=== PATIENT | male | born 1945 | race Caucasian/White ===

== ENCOUNTER 2016-01-22 14:40 | Outpatient (RCR) | payer MEDICARE, OTHER ==
[~2016-01-22 14:40] MED LIST: BENAZEPRIL40 MG PO; DOXYCYCLINE 10100 MG PO; GLUCOSAMINE & C1 TA2 PO; HCTZ 25MG25 MG PO; JANUMET 1000 MG1 TA1 PO; LIDODERM5% TP; NORVASC 10MG10 MG PO; TYLENOL 650MG650 M2 PO; ULTRAM50 MG PO; ZOCOR5 MG PO
== END 2016-04-21 | disposition home or self-care (01) ==
LOC: CARDREHAB 14:40
DX: Z48.812 Encounter for surgical aftercare following surgery on the circulatory system (principal)

== ENCOUNTER 2016-04-23 11:11 | Outpatient (RCR) | payer MEDICARE, OTHER ==
[2016-05-04] MEDS ORDERED: ASPIRIN 81M81 MG/TA2 PO (23:12)
[2016-05-04] MEDS ORDERED: ARTIFICIAL TEAR15 M9 OU (23:12)
[2016-05-04] MEDS ORDERED: WELLBUTRIN 75MG75 MG PO (23:13)
[2016-05-04] MEDS ORDERED: SINEMET 25-1001 EACH PO (23:13)
[2016-05-04] MEDS ORDERED: CITALOPRAM40 MG PO (23:14)
[2016-05-04] MEDS ORDERED: ZYRTEC ALLERGY10 MG PO (23:14)
[2016-05-04] MEDS ORDERED: BENADRYL PO (23:15)
[2016-05-04] MEDS ORDERED: CLOPIDOGREL PO (23:15)
[2016-05-04] MEDS ORDERED: FLONASE ALLERG9.9 ML (23:16)
[2016-05-04] MEDS ORDERED: DHA PO (23:16)
[2016-05-04] MEDS ORDERED: LASIX40 M1 PO (23:17)
[2016-05-04] MEDS ORDERED: NORCO 325 MG-51 TA1 PO (23:18)
[2016-05-04] MEDS ORDERED: ISOSORBIDE MONO60 M1 PO (23:18)
[2016-05-04] MEDS ORDERED: CLARITIN LIQUI-10 MG PO (23:19)
[2016-05-04] MEDS ORDERED: COZAAR100 MG PO (23:19)
[2016-05-04] MEDS ORDERED: GLUCOPHAGE850 MG PO (23:25)
[2016-05-04] MEDS ORDERED: PROSTATE HEALT1 EACH PO (23:25)
[2016-05-04] MEDS ORDERED: XARELTO20 MG PO (23:26)
[2016-05-04] MEDS ORDERED: OCUVITE TABLET1 TAB PO (23:26)
[2016-05-04] MEDS ORDERED: BYSTOLIC10 MG PO (23:26)
[2016-05-05 10:06] VITALS: BP 119/65
== END 2016-07-22 | disposition home or self-care (01) ==
LOC: CARDREHAB
DX: Z48.812 Encounter for surgical aftercare following surgery on the circulatory system (principal); Z98.61 Coronary angioplasty status

== ENCOUNTER 2016-05-04 22:54 | Emergency (ER) | payer MEDICARE, OTHER ==
[2016-05-04] MEDS ORDERED: ARTIFICIAL TEAR15 M9 OU (23:12)
[2016-05-04] MEDS ORDERED: ASPIRIN 81M81 MG/TA2 PO (23:12)
[2016-05-04] MEDS ORDERED: WELLBUTRIN 75MG75 MG PO (23:13)
[2016-05-04] MEDS ORDERED: SINEMET 25-1001 EACH PO (23:13)
[2016-05-04] MEDS ORDERED: ZYRTEC ALLERGY10 MG PO (23:14)
[2016-05-04] MEDS ORDERED: CITALOPRAM40 MG PO (23:14)
[2016-05-04] MEDS ORDERED: CLOPIDOGREL PO (23:15)
[2016-05-04] MEDS ORDERED: BENADRYL PO (23:15)
[2016-05-04] MEDS ORDERED: DHA PO (23:16)
[2016-05-04] MEDS ORDERED: FLONASE ALLERG9.9 ML (23:16)
[2016-05-04] MEDS ORDERED: LASIX40 M1 PO (23:17)
[2016-05-04] MEDS ORDERED: ISOSORBIDE MONO60 M1 PO (23:18)
[2016-05-04] MEDS ORDERED: NORCO 325 MG-51 TA1 PO (23:18)
[2016-05-04] MEDS ORDERED: CLARITIN LIQUI-10 MG PO (23:19)
[2016-05-04] MEDS ORDERED: COZAAR100 MG PO (23:19)
[2016-05-04] MEDS ORDERED: PROSTATE HEALT1 EACH PO (23:25)
[2016-05-04] MEDS ORDERED: GLUCOPHAGE850 MG PO (23:25)
[2016-05-04] MEDS ORDERED: XARELTO20 MG PO (23:26)
[2016-05-04] MEDS ORDERED: BYSTOLIC10 MG PO (23:26)
[2016-05-04] MEDS ORDERED: OCUVITE TABLET1 TAB PO (23:26)
[2016-05-05 10:06] VITALS: BP 119/65
== END 2016-05-05 10:13 | disposition home or self-care (01) ==
LOC: ED 22:54
DX: I26.99 Other pulmonary embolism without acute cor pulmonale (principal); Z87.891 Personal history of nicotine dependence; I25.10 Atherosclerotic heart disease of native coronary artery without angina pectoris; E11.9 Type 2 diabetes mellitus without complications; I10 Essential (primary) hypertension; Z79.82 Long term (current) use of aspirin; Z79.01 Long term (current) use of anticoagulants; Z79.84 Long term (current) use of oral hypoglycemic drugs
CPT/HCPCS: J1940; Q9967

== ENCOUNTER → 2016-10-22 | Outpatient (CLI) | payer MEDICARE, OTHER ==
[~2016-10-22] MED LIST changes: +ARTIFICIAL TEAR15 M9 OU; +ASPIRIN 81M81 MG/TA2 PO; +BENADRYL PO; +BYSTOLIC10 MG PO; +CITALOPRAM40 MG PO; +CLARITIN LIQUI-10 MG PO; +CLOPIDOGREL PO; +COZAAR100 MG PO; +DHA PO; +FLONASE ALLERG9.9 ML; +GLUCOPHAGE850 MG PO; +ISOSORBIDE MONO60 M1 PO; +LASIX40 M1 PO; +NORCO 325 MG-51 TA1 PO; +OCUVITE TABLET1 TAB PO; +PROSTATE HEALT1 EACH PO; +SINEMET 25-1001 EACH PO; +WELLBUTRIN 75MG75 MG PO; +XARELTO20 MG PO; +ZYRTEC ALLERGY10 MG PO
== END ==
LOC: RAD 08:45
DX: I65.23 Occlusion and stenosis of bilateral carotid arteries (principal)